=== PATIENT | female | born 2000 | race Caucasian/White ===

== ENCOUNTER 2021-05-26 19:43 | Emergency (ER) | payer OTHER, MEDICAID ==
[~2021-05-26] VITALS: Ht 162.6 cm; Wt 52.2 kg
[2021-05-26 20:24] LABS: ABSOLUTE EOSINOPHILS 0.1 thou/uL (0.0-0.7); ABSOLUTE LYMPHOCYTES 1.8 thou/uL (0.8-5.3); ABSOLUTE MONOCYTES 0.4 thou/uL (0.0-1.2); ABSOLUTE NEUTROPHILS 3.5 thou/uL (1.6-8.1); BASOPHILS 0.4 %; EOSINOPHILS 1.3 %; LYMPHOCYTES 31.4 %; MCH 27.9 pg (26.0-34.0); MCHC 33.3 g/dL (28.0-37.0); MCV 83.8 fL (80.0-100.0); MONOCYTES 6.1 %; MPV 9.1 fl. (7.2-11.1); NUCLEATED RBCS 0 /100WBC; PLATELET COUNT* 216 thou/uL (150-400); POLYS 60.8 %; RBC 4.29 mil/uL (4.20-5.00); RDW-CV 13.8 % (10.5-14.5); WBC 5.8 thou/uL (4.0-11.0)
[2021-05-26] MEDS ORDERED: CATAPRES-TTS 20.2 MG PO (20:27)
[2021-05-26] MEDS ORDERED: ABILIFY10 MG PO (20:27)
[2021-05-26 20:31] LABS: CALCIUM 8.1 mg/dL (8.5-10.1); CREATININE 0.9 mg/dL (0.6-1.3); POTASSIUM 3.6 mmol/L (3.5-5.1)
[2021-05-26 20:36] LABS: ALBUMIN 3.5 g/dL (3.4-5.0); MAGNESIUM 1.9 mg/dL (1.8-2.4); TOTAL BILIRUBIN 1.1 mg/dL (<0.1-1.0); TOTAL PROTEIN 6.7 g/dL (6.4-8.2)
[2021-05-26 20:42] LABS: ALCOHOL < 10 mg/dL (<10)
[2021-05-26 20:43] LABS: ACETAMINOPHEN < 2 ug/mL (10-30); SALICYLATE < 2.8 mg/dL (2.8-20.0)
[2021-05-26 21:04] LABS: URINE BILIRUBIN NEGATIVE (Negative); URINE BLOOD NEGATIVE (Negative); URINE CLARITY CLEAR; URINE COLOR YELLOW; URINE GLUCOSE-RANDOM NEGATIVE (Negative); URINE KETONES NEGATIVE (Negative); URINE LEUKOCYTES-REFLEX NEGATIVE (Negative); URINE NITRITE-REFLEX NEGATIVE (Negative); URINE PROTEIN NEGATIVE (Negative); URINE UROBILINOGEN 0.2 E.U./dl (0.2-1.0)
[2021-05-26 21:20] LABS: AMP/METHAMP Negative (Negative); BARBITURATES Negative (Negative); BENZODIAZEPINES Negative (Negative); COCAINE Negative (Negative); METHADONE Negative (Negative); OPIATES Negative (Negative); PCP Negative (Negative); THC POSITIVE (Negative)
[2021-05-27 12:43] VITALS: BP 117/79
--- NOTE | 2021-05-27 16:08 | EKG ---
[place] [address] ELECTROCARDIOGRAM REPORT Name: YUE ARIAS [facility] [id number] Admission: 05/26/21 Attend Phys: Discharge: 05/27/21 Date of : 89 Date of Service: 05/26/212011 Report #: [id number] THIS REPORT FOR: //name// [facility] ED Test Date: 2021-05-26 Test Time: 20:12:11 Pat Name: YUE ARIAS Department: Room: Gender: [employer] Con[employer] Operator: : [id number] Requested By: Marjorie Quiros Order Number: [id number] MD: Marco Valenzuela Measurements Intervals [place] Rate: 84 P: 78 W[place]: 135 QRS: 71 QRSD: 84 T: 62 QT: 385 QTc: 456 Interpretive Statements Sinus rhythm No previous ECG available for comparison Electronically Signed On 05-27-2021 16:07:53 CDT by Marco Valenzuela [email or web address] <ELECTRONICALLY SIGNED> By: Marco Valenzuela MD, [facility] 05/27/21 1607 11 11 Marco Valenzuela MD, FACC /EPI
== END 2021-05-27 12:45 ==
LOC: M.ERS 19:43
PROVIDERS: Emergency Medicine
DX: T46.5X2A Poisoning by other antihypertensive drugs, intentional self-harm, initial encounter (principal); Z20.822 Contact with and (suspected) exposure to COVID-19; R42 Dizziness and giddiness; F41.9 Anxiety disorder, unspecified; F31.9 Bipolar disorder, unspecified; G43.909 Migraine, unspecified, not intractable, without status migrainosus; Z79.899 Other long term (current) drug therapy; Z91.040 Latex allergy status; Z88.8 Allergy status to other drugs, medicaments and biological substances; Y92.89 Other specified places as the place of occurrence of the external cause